=== PATIENT | female | born 1955 | race Hispanic/Latino ===

== ENCOUNTER 2021-01-26 08:23 | Outpatient (CLI) | payer OTHER ==
--- NOTE | 2021-01-26 09:48 | Mammography Report ---
DIGITAL SCREENING MAMMOGRAM WITH CAD, 01/26/2021 CLINICAL INFORMATION / INDICATION: Routine screening mammography. TECHNIQUE: Digital bilateral 2D mammography was obtained in the craniocaudal and mediolateral obliqu e projections. This examination was interpreted with the benefit of Computer-Aided Detection analysis . COMPARISON: 10/08/2019, 10/29/2018, 10/04/2018, 11/07/2017 FINDINGS: Breast Density: The breasts are extremely dense, which lowers the sensitivity of mammography. No dominant mass, suspicious calcifications, or architectural distortion in either breast. IMPRESSION: No mammographic evidence of malignancy. Follow up recommendation: Routine yearly BI-RADS Category 1: Negative. A "normal" or negative report should not discourage follow up or biopsy of a clinically significant f inding. A written summary of these findings will be mailed to the patient. The patient will be entered into a mammography reporting system which will generate a reminder letter for the patient's next appointmen t at the appropriate interval. The [employer] recommends yearly mammograms starting at age 40 and continuing as l janis as a woman is in good health. Breast MRI is recommended for women with an approximate 20-25% or greater lifetime risk of breast cancer, including women with a strong family history of breast or ova eugene cancer or who have been treated for Hodgkin's disease. Signer Name: Clari Recinos MD Signed: 01/26/2021 9:44 AM Workstation Name: [id number]
== END 2021-01-26 08:24 | disposition home or self-care (01) ==
LOC: SPVWC 08:23
PROVIDERS: ATTEND Surgery
DX: Z12.31 Encounter for screening mammogram for malignant neoplasm of breast (principal)
CPT/HCPCS: 77067

== ENCOUNTER 2021-03-02 07:56 | Outpatient (CLI) | payer OTHER ==
--- NOTE | 2021-03-02 09:08 | Mammography Report ---
LEFT DIGITAL DIAGNOSTIC MAMMOGRAM WITH CAD CONVENTIONAL, 03/02/2021 LEFT LIMITED BREAST ULTRASOUND CLINICAL INFORMATION / INDICATION: Patient presents for evaluation of an area of palpable concern in the left breast. TECHNIQUE: Digital left mammographic imaging was performed. Spot compression views were obtained. Baca ited ultrasound was performed. This examination was interpreted with the benefit of Computer-Aided De tection (CAD) analysis. COMPARISON: Prior mammogram 01/26/2021 FINDINGS: Breast Density: The breasts are heterogeneously dense, which may obscure small masses. MAMMOGRAPHIC FINDINGS: No dominant mass, suspicious calcifications, or architectural distortion in th e left breast. There is no mammographic abnormality underlying the marker denoting site of palpable c oncern in the lower outer quadrant of the left breast, therefore targeted left breast ultrasound was performed. ULTRASOUND FINDINGS: Targeted ultrasound evaluation was performed of the area of interest. Targeted ultrasound of the area of palpable concern in the left breast 4:00 position located 11 cm from the n ipple reveals a circumscribed hypoechoic masslike lesion measuring up to 9 x 9 x 4 mm. The lesion is parallel. No internal vascularity is demonstrated. IMPRESSION: 1. A circumscribed hypoechoic masslike lesion accounts for the area of palpable concern in the left b reast. This is considered low suspicion for malignancy and may reflect a fibroadenoma or [place] fibrocystic tissue. However, because the area is newly palpable, ultrasound-guided biopsy is jose carlos mmended for confirmation. Follow up recommendation: Biopsy BI-RADS Category 4: Suspicious for Malignancy. A "normal" or negative report should not discourage follow up or biopsy of a clinically significant f inding. A written summary of these findings will be mailed to the patient. The patient will be entered into a mammography reporting system which will generate a reminder letter for the patient's next appointmen t at the appropriate interval. According to the [employer], yearly mammograms are recommended starting at age 40 and continuing as long as a woman is in good health. Breast MRI is recommended for women with an leonardo roximately 20-25% or greater lifetime risk of breast cancer, including women with a strong family his tory of breast or ovarian cancer and women who have been treated for Hodgkin's disease. Signer Name: Angeles Caceres MD Signed: 03/02/2021 9:03 AM Workstation Name: [id number]
== END 2021-03-02 07:57 | disposition home or self-care (01) ==
LOC: SPVWC 07:56
PROVIDERS: ATTEND Surgery
DX: N63.0 Unspecified lump in unspecified breast (principal)

== ENCOUNTER 2021-03-29 08:00 | Outpatient (CLI) | payer OTHER ==
--- NOTE | 2021-03-29 09:18 | Ultrasound Report ---
ULTRASOUND-GUIDED CORE NEEDLE BIOPSY Left BREAST WITH CLIP PLACEMENT INDICATION: Left breast lesion at the 4:00 position. COMPARISON: 03/02/2021. FINDINGS: Informed consent was obtained. The lesion within the left breast at the 4:00 position, 11 cm from the nipple, was identified with ultrasound. The overlying skin was cleansed with chloro prep and local a nesthesia was obtained with a 1% lidocaine solution. Under ultrasound guidance a 14-gauge spring load ed core biopsy needle was advanced to the lesion. A total of 4 core samples were obtained. A U-shaped biopsy marker was placed to ethan the site of the biopsy. Specimen samples were placed in formalin an d sent to pathology for analysis. Patient tolerated the procedure well and no immediate complications were identified. A post procedure mammogram demonstrates biopsy marker in the expected location, although a mammographic correlate was never identified. IMPRESSION: Technically successful ultrasound-guided core biopsy of left breast lesion at the 4:00 position with placement of a U-shaped biopsy marker. An addendum will be added to this report once pathology results are available. Signer Name: Taye Sanders MD Signed: 03/29/2021 9:13 AM Workstation Name: [id number]
--- NOTE | 2021-03-29 09:26 | Mammography Report ---
LEFT DIAGNOSTIC MAMMOGRAM INDICATION: Status post left breast 4:00 biopsy. COMPARISON: 03/02/2021. FINDINGS: Left breast mammographic images document a U-shaped biopsy marker within the far posterior left breast at the 4:00 position (site of recent ultrasound-guided core biopsy). IMPRESSION: Left breast mammographic images documenting location of a U-shaped biopsy marker within the left cheng st at the 4:00 far posterior position (site of recent ultrasound-guided core biopsy). BI-RADS Category 4: Suspicious for Malignancy. Signer Name: Taye Sanders MD Signed: 03/29/2021 9:21 AM Workstation Name: [id number]
== END 2021-03-29 08:01 | disposition home or self-care (01) ==
LOC: SPVWC 08:00
PROVIDERS: ATTEND Surgery
DX: N63.23 Unspecified lump in the left breast, lower outer quadrant (principal); R92.2 Inconclusive mammogram; R92.8 Other abnormal and inconclusive findings on diagnostic imaging of breast; N64.89 Other specified disorders of breast
CPT/HCPCS: 88305

== ENCOUNTER 2021-05-17 08:21 | Outpatient (CLI) | payer OTHER ==
--- NOTE | 2021-05-17 10:00 | Magnetic Resonance Report ---
MRI BREAST BILATERAL WITH AND WITHOUT CONTRAST, 05/17/2021 CLINICAL INFORMATION / INDICATION: UNSPECIFIED BREAST LUMP N63.23/ ABNORMAL MAMMO R92.8. Recently bio psied nodule in left breast performed. TECHNIQUE: Axial T1 and T2-weighted fat sat images were obtained precontrast. 12 cc Clariscan contras t was injected intravenously and serial axial T1 weighted images with fat saturation were obtained. 3 -D MIP projections, kinetic analysis, and subtraction imaging were utilized to evaluate. A dedicated 8-channel breast coil was used for image acquisition. COMPARISON: Diagnostic left mammogram and ultrasound guided left breast biopsy from 03/29/2021. Screen ing mammogram from 01/26/2021. FINDINGS: BREAST DENSITY: Heterogeneously dense. BACKGROUND ENHANCEMENT: Moderate background enhancement within both breasts. RIGHT BREAST: No dominant mass or suspicious area of enhancement in the right breast. LEFT BREAST: The previously biopsied posterior 4:00 mass does not suspiciously enhance. No other mass or other suspicious area of enhancement is seen. There is a 1 cm simple cyst seen in the 12:00 posit ion anterior/middle depth. AXILLAE: No pathologically enlarged axillary lymph nodes. ADDITIONAL FINDINGS: Limited imaging of the thorax and upper abdomen demonstrates no focal abnormalit y. IMPRESSION: 1. Nonenhancing previously biopsied left breast mass is most likely benign given the appearance on th is study and the previous recent benign biopsy result.A limited left breast ultrasound in 6 months is recommended to ensure stability. 2. No other MRI evidence of malignancy in either breast. Follow up recommendation: Short term follow up in 6 months. BI-RADS Category 3: Probably Benign. Followup in 6 months. Signer Name: Pablo Godwin MD Signed: 05/17/2021 9:55 AM Workstation Name: [id number]
== END 2021-05-17 08:22 | disposition home or self-care (01) ==
LOC: SPVIMAG 08:21
PROVIDERS: ATTEND Surgery
DX: N60.02 Solitary cyst of left breast (principal); N63.23 Unspecified lump in the left breast, lower outer quadrant; R92.8 Other abnormal and inconclusive findings on diagnostic imaging of breast
CPT/HCPCS: A9575; C8908; 77049